=== PATIENT | female | born 1960 | race Caucasian/White ===

== ENCOUNTER 2020-07-05 22:02 | Emergency (ER) | payer MEDICARE, MEDICAID, SELFPAY ==
[2020-07-05 22:35] VITALS: BP 144/80; PULSE 85; RESP 16; TEMP 37.4; O2SAT 96; BMI 29.9
--- NOTE | 2020-07-05 23:27 | ED_ITS ---
HPI - Fever General Chief Complaint: Fever Stated Complaint: fever Time Seen by Provider: 07/05/20 23:27 Source: patient, family (Daughter, Julita) and hourly sign language interpreter Mode of arrival: ambulatory Limitations: no limitations History of Present Illness HPI Narrative: This is a 60-year-old female with significant past medical history of rheumatoid arthritis for which she undergoes monthly immunotherapy and presents today with 5-6 days of body aches, headache, ear pressure, as well as fevers that have been responsive to [id number] Tylenol but due to the length of symptoms she was encouraged to come to the emergency department by her daughter. Her older daughter has been providing [place]ic interpretation via face time due to the department translating device not working. The daughter states that there is some concern that the patient's may be the source of infection as he had a very short course of symptoms that only lasted 2-3 days. Patient denies any shortness of breath, GI symptoms, or symptoms. Related Data Allergies Allergy/AdvReac Type Severity Reaction Status Date / Time penicillin V Allergy Unknown Verified 04/17/13 00:00 Review of Systems Review of Systems: Pertinent positives and negatives as stated in HPI 10 point review of systems is otherwise negative. PMFSH Past Medical History Source: nursing notes reviewed Medical History Rheumatoid arthritis Social History Social History Advance Directives: No Physical Exam Vital Signs: Vital Signs: Last Vital Signs Temp 99.3 F 07/05/20 22:35 Pulse 85 07/05/20 22:35 Resp 16 07/05/20 22:35 BP 144/80 H 07/05/20 22:35 Pulse Ox 96 07/05/20 22:35 Body Mass Index 29.9 VITAL SIGNS: Reviewed. GENERAL: Well developed, well nourished, in no acute distress. HEAD: Normocephalic/atraumatic, EYES: PERRLA, EOMI intact without pain EARS: Ext canals without abnormality, TMs trace bulging bilaterally and non- erythematous NOSE: Nares patent bilateral OROPHARYNX: no oral lesions noted, posterior pharynx clear and non-erythematous without noted tonsillar enlargement/erythema/exudates NECK: Supple, no adenopathy LUNGS: Normal breath sounds. No adventitious sounds or accessory muscle use. SpO2<96> CARDIOVASCULAR: Regular rate and rhythm without noted murmurs, no JVD or lower extremity edema. ABDOMEN: Soft, non-tender, non-distended with bowel sounds. No rigidity. No guarding. No palpable masses or hernias noted NEUROLOGIC: Alert and oriented x 4. Strength and sensation to light touch were grossly intact x 4. Course Course Course Narrative: This is a 60-year-old female with history and clinical presentation most consistent with viral syndrome and no evidence of hypoxia, tachypnea and currently afebrile. Patient received COVID-19 swab and was instructed to continue self quarantine until the results of her COVID-19 testing or call to her. The daughter who has provided interpretation states that she will be in close contact with her mother and assist in follow-up. Discharge Plan Discharge Clinical Impression: Viral syndrome Patient Disposition: Home, Self-Care Instructions: Viral Syndrome (ED) Additional Instructions: You have been tested for COVID-19 today and you must abide by [facility] law for self quarantine until the results of your COVID-19 test are called to you. If you experience any worsening shortness of breath please return to the emergency department. Please continue to drink plenty of water and alternate [id number] Tylenol and ibuprofen as needed for fever control and body aches. Referrals: Physician,Unknown [Primary Care Provider] - 2 days Discharge Date/Time: 07/05/20 23:36
--- NOTE | 2020-07-05 23:35 | PC.NURSE ---
PLEASE CALL DAUGHTER WITH COVID RESULTS. OK TO LEAVE A VOICEMAIL IF SHE DOES NOT ANSWER.
== END 2020-07-05 23:36 | disposition home or self-care (01) ==
PROVIDERS: Emergency Provider Student in an Organized Health Care Education/Training Program
DX: U07.1 COVID-19 (principal)
CPT/HCPCS: 99283; U0003

== ENCOUNTER 2023-08-02 10:48 | Outpatient (REF) | payer OTHER, MEDICAID, SELFPAY ==
[2023-08-02 14:53] LABS: MANUAL DIFF FLAG NO
[2023-08-02 15:02] LABS: Basophils Percent Auto 0.3 % (0-2); Eosinophils Absolute Auto 0.1 X10*3/uL (0.0-0.4); Eosinophils Percent Auto 0.8 % (0-4); Hematocrit 39.9 % (37.0-47.0); Hemoglobin 13.3 g/dl (12.0-16.0); Imm Gran Abs Auto 0.02 X10*3/uL (0.00-0.03); Imm Gran Pct Auto 0.3 % (0.0-0.4); Lymphocytes Absolute Auto 1.6 X10*3/uL (1.2-4.9); Lymphocytes Percent Auto 22.2 % (20-40); Mean Corpuscular HGB Conc 33.3 g/dl (31.0-35.0); Mean Corpuscular Hemoglobin 29.4 pg (27.0-33.0); Mean Corpuscular Volume 88.3 fL (80.0-98.0); Mean Platelet Volume 10.4 fL (9.4-12.3); Monocytes Absolute Auto 0.6 X10*3/uL (0.1-1.2); Monocytes Percent Auto 8.2 % (2-11); Neutrophils Absolute Auto 4.8 x10*3/uL (2.0-8.3); Neutrophils Percent Auto 68.2 % (45-73); Platelet Count 186 X10*3/uL (160-400); Red Blood Count 4.52 X10*6/uL (4.20-5.50); Red Cell Distribution Width 12.4 % (11.0-16.0); White Blood Count 7.1 X10*3/uL (4.8-10.8)
[2023-08-02 15:18] LABS: Alanine Aminotransferase 27 U/L (0-31); Albumin Level 4.4 g/dL (3.5-5.0); Alkaline Phosphatase 44 U/L (39-117); Anion Gap 13 (12-20); Aspartate Amino Transferase 16 U/L (5-31); Bilirubin Total 0.4 mg/dL (0.0-1.0); Blood Urea Nitrogen 14 mg/dL (9-16); Carbon Dioxide 26 mmol/L (22-29); Chloride 103 mmol/L (96-108); Cholesterol 195 mg/dL (<200); Estimated Glomerular Filt Rate > 60; Glucose Fasting 137 mg/dL (60-99); HDL Cholesterol 49 mg/dL (>40); LDL Cholesterol Calculated 117 mg/dL (<100); Potassium 3.7 mmol/L (3.3-5.1); Sodium 138 mmol/L (135-145); Triglycerides 145 mg/dL (<150)
[2023-08-03 09:36] LABS: HBc Num1 0.19 S/CO (0.00-0.79); HBsAGNum1 0.41 S/CO (0.00-0.99); Hepatitis A Antibody IgM 0.45 Index (0-0.79); Hepatitis B Core Antibody Nonreactive (Nonreactive); Hepatitis B Surface Antigen Negative (Negative); ~HepC Num1 8.42 S/CO (0.00-0.79); ~Hepatitis A Antibody IgM Nonreactive (Nonreactive); ~Hepatitis B Surface Antibody NONREACTIVE (Nonreactive); ~Hepatitis C Antibody Reactive (Nonreactive)
[2023-08-05 08:53] LABS: TS Negative Control Passed; TS Panel A 32; TS Panel B 25; TS Positive Control Passed; TSpotTB Positive (Negative)
== END 2023-08-02 10:49 | disposition home or self-care (01) ==
LOC: HO.CHCLDS 10:48
PROVIDERS: Visit Provider Dermatology
DX: L40.0 Psoriasis vulgaris (principal); K75.9 Inflammatory liver disease, unspecified
CPT/HCPCS: 36415; 80053; 80061; 85025; 86481; 86704; 86706; 86709; 86803; 87340

== ENCOUNTER 2023-09-13 10:24 | Outpatient (REF) | payer OTHER, SELFPAY ==
[2023-09-13 15:01] LABS: Creatinine Urine 168.04 mg/dL; Microalbum/Creatinine Ratio Ur 7.1 ug/mg cr (<30)
[2023-09-13 15:42] LABS: Estimated Average Glucose 154 mg/dL
[2023-09-13 16:13] LABS: Alanine Aminotransferase 29 U/L (0-31); Albumin Level 4.3 g/dL (3.5-5.0); Alkaline Phosphatase 36 U/L (39-117); Anion Gap 13 (12-20); Aspartate Amino Transferase 19 U/L (5-31); Bilirubin Total 0.5 mg/dL (0.0-1.0); Blood Urea Nitrogen 11 mg/dL (9-16); Calcium 9.4 mg/dL (8.4-10.2); Carbon Dioxide 24 mmol/L (22-29); Chloride 103 mmol/L (96-108); Cholesterol 209 mg/dL (<200); Estimated Glomerular Filt Rate > 60; Glucose Fasting 120 mg/dL (60-99); HDL Cholesterol 43 mg/dL (>40); LDL Cholesterol Calculated 142 mg/dL (<100); Potassium 3.4 mmol/L (3.3-5.1); Sodium 137 mmol/L (135-145); Total Protein 7.8 g/dL (6.5-8.0); Triglycerides 122 mg/dL (<150)
== END 2023-09-13 10:25 | disposition home or self-care (01) ==
LOC: HO.CHCLDS 10:24
PROVIDERS: Visit Provider Internal Medicine
DX: M06.9 Rheumatoid arthritis, unspecified (principal); E11.65 Type 2 diabetes mellitus with hyperglycemia; E11.51 Type 2 diabetes mellitus with diabetic peripheral angiopathy without gangrene
CPT/HCPCS: 36415; 80053; 80061; 82043; 82570; 83036